=== PATIENT | male | born 2000 | race Caucasian/White ===

== ENCOUNTER 2020-07-09 13:42 | Inpatient (IN) | payer OTHER ==
[~2020-07-09] VITALS: Ht 170.2 cm; Wt 81.6 kg
[2020-07-09 13:50] VITALS: BP 142/86
[2020-07-09 14:32] LABS: ABSOLUTE BASOPHILS 0.1 thou/uL (0.0-0.2); ABSOLUTE EOSINOPHILS 0.1 thou/uL (0.0-0.7); ABSOLUTE LYMPHOCYTES 3.1 thou/uL (0.8-5.3); ABSOLUTE MONOCYTES 0.8 thou/uL (0.0-1.2); ABSOLUTE NEUTROPHILS 4.5 thou/uL (1.6-8.1); BASOPHILS 0.7 %; EOSINOPHILS 1.6 %; HEMATOCRIT 46.1 % (42.0-52.0); HEMOGLOBIN 16.1 gm/dL (14.0-18.0); LYMPHOCYTES 35.9 %; MCH 29.4 pg (26.0-34.0); MCHC 34.8 g/dL (28.0-37.0); MCV 84.4 fL (80.0-100.0); MONOCYTES 9.5 %; MPV 7.7 fl. (7.2-11.1); NUCLEATED RBCS 0 /100WBC; PLATELET COUNT* 204 thou/uL (150-400); POLYS 52.3 %; RBC 5.47 mil/uL (4.50-6.00); RDW-CV 12.3 % (10.5-14.5); WBC 8.6 thou/uL (4.0-11.0)
[2020-07-09 14:40] LABS: CALCIUM 9.6 mg/dL (8.5-10.1); POTASSIUM 4.1 mmol/L (3.5-5.1)
[2020-07-09 14:45] LABS: ALBUMIN 4.4 g/dL (3.4-5.0); TOTAL BILIRUBIN 0.9 mg/dL (<0.1-1.0)
[2020-07-09 15:52] VITALS: BP 133/70
[2020-07-09 16:00] VITALS: BP 136/86
[2020-07-09 19:17] VITALS: BP 139/86
[2020-07-10 05:51] LABS: HEMATOCRIT 43.8 % (42.0-52.0); HEMOGLOBIN 15.2 gm/dL (14.0-18.0); MCH 29.4 pg (26.0-34.0); MCHC 34.7 g/dL (28.0-37.0); MCV 84.7 fL (80.0-100.0); MPV 8.3 fl. (7.2-11.1); RBC 5.17 mil/uL (4.50-6.00); RDW-CV 12.5 % (10.5-14.5); WBC 6.5 thou/uL (4.0-11.0)
[2020-07-10 06:12] LABS: ALBUMIN 3.8 g/dL (3.4-5.0); CALCIUM 8.6 mg/dL (8.5-10.1); MAGNESIUM 2.1 mg/dL (1.8-2.4); POTASSIUM 3.9 mmol/L (3.5-5.1); TOTAL BILIRUBIN 0.8 mg/dL (<0.1-1.0); TOTAL PROTEIN 7.1 g/dL (6.4-8.2)
[2020-07-10 07:20] VITALS: BP 137/80
[2020-07-10] MEDS ORDERED: AUGMENTIN 875-1 EACH PO (12:38)
[2020-07-10 12:42] VITALS: BP 137/80
[2020-07-10 13:08] VITALS: BP 137/80
== END 2020-07-10 13:09 | disposition home or self-care (01) | DRG 558 ==
LOC: M.ERS 13:42 → M.TBA-ER 15:13 → M.3W 16:05
PROVIDERS: Emergency Medicine Emergency Medical Services; ADMIT Internal Medicine; ATTEND Internal Medicine
DX: M65.842 Other synovitis and tenosynovitis, left hand (principal); S61.239A Puncture wound without foreign body of unspecified finger without damage to nail, initial encounter; X58.XXXA Exposure to other specified factors, initial encounter; Y93.89 Activity, other specified; Y92.89 Other specified places as the place of occurrence of the external cause; Y99.8 Other external cause status; Z20.822 Contact with and (suspected) exposure to COVID-19